=== PATIENT | female | born 1965 | race Caucasian/White ===

== ENCOUNTER → 2017-01-08 | Day surgery (SDC) | payer BC ==
[~2017-01-08] MED LIST: BUPIVACAINE HCL PF 0.75% 30 ML VIAL ONE; EPINEPHrine HCL (1:1000) 30 MG/30 ML VIAL ONE; LACTATED RINGER'S 1000 ML INJ 1,000 ML ONE; LIDOCAINE 1.5%/EPINEPHrine 1:200,000 PF SOLN 30 ML AMP ONE; MIDAZOLAM HCL 5 MG/ML VIAL (1 ML) ONE; ONDANSETRON HCL 4 MG/2 ML VIAL IV PUSH ONE; PROPOFOL 500 MG/50 ML BTL IV ONE; SCOPOLAMINE 1.5 MG PATCH ONE; ceFAZolin INJ 1,000 MG VIAL ONE
--- NOTE | 2017-01-10 18:19 | MP ---
cc: MINNIE DIETZ M.D. DATE OF SURGERY: 01/08/2017. PREOPERATIVE DIAGNOSIS: Left shoulder frozen shoulder. POSTOPERATIVE DIAGNOSIS: Left shoulder hypertrophic granulation tissue about the anterior superior and posterior labrum with adhesive capsulitis and a normal-appearing biceps tendon. OPERATIVE PROCEDURE PERFORMED: Left shoulder arthroscopic extensive debridement including capsular release from the three o'clock position superiorly all the way back posteriorly to the four o'clock position on the face of the clock. ANESTHESIA: Interscalene block and general. SURGEON: Minnie Dietz MD [employer] SURGEON: Staff. COMPLICATIONS: None known. INDICATIONS FOR THE PROCEDURE: Lillie Joel is a 51-year-old female with a chronically painful stiff left shoulder. She has had labral surgery on her opposite shoulder many years ago which did well with arthroscopic repair. Her left shoulder has been stiff with a markedly limited range of motion despite extensive conservative measures. She is now offered arthroscopic capsular release and evaluation of the biceps tendon with extensive debridement. Risks and benefits were thoroughly discussed. No guarantees offered. All of her questions were answered. Informed consent was obtained. DESCRIPTION OF THE PROCEDURE IN DETAIL: The patient was given interscalene block in the preop holding area and then brought to the operating room. She was placed under general anesthetic. The left upper extremity was prepped and draped in usual sterile fashion. She was in the lateral decubitus position with axillary roll in place. We started with a gentle manipulation of the shoulder and we were surprised by the amount of range of motion that we had without putting much force. We did feel a release of adhesions when this was performed and we went through full range of motion. We then proceeded with arthroscopic portal posteriorly and a blunt trocar was used to introduce the cannula. The first photograph shows a normal-appearing biceps tendon with the exception of some granulation tissue, hyperemic tissue at the base the biceps and involving the anterior labrum and involving the superior labrum and then other photographs demonstrate some pronounced granulation tissue posteriorly. Looking upwards, we saw normal-appearing biceps tendon along its course and normal- appearing rotator cuff insertion and normal-appearing articular surfaces of the glenoid and humeral head. The release had allowed for excellent range of motion and now we made an anterior portal and brought a probe into the shoulder joint and fully inspected and then proceeded with debridement of the hypertrophic granulation tissue anteriorly, superiorly and posteriorly and then proceeded with electrocautery gently along the superior, posterior and anterior labrum and then proceeded with capsular release starting at the three o'clock position and going up behind the biceps tendon and coming across the capsular fold superiorly and then going down posteriorly past the midportion of the posterior aspect of the shoulder and going to approximately the four o'clock position on the face of the clock. We obtained good hemostasis. Any hypertrophic tissue was thoroughly debrided and we had excellent hemostasis and we took multiple photographs demonstrating the release and the debridement. We switched over a switching stick and then visualized from anteriorly. It should be noted that we used both the 30-degree scope and the 70-degree scope during the course of the operation. Repeat diagnostic arthroscopy revealed no loose bodies. We had excellent range of motion. Excellent hemostasis. The arthroscopic equipment was removed. We closed with absorbable sutures. Steri-Strips were applied. Sterile dressing applied. The patient was awoken and returned to the recovery room in stable condition. MD JOSÉ LUIS Handy/LORI /1:15 PM /6:06 PM
== END | disposition home or self-care (01) ==
LOC: ESDC 09:14
PROVIDERS: ATTEND Orthopaedic Surgery Sports Medicine
DX: M75.02 Adhesive capsulitis of left shoulder (principal)
CPT/HCPCS: 01630; 01991; 29806; 64417; J0171; J0690; J2250; J2405; J7120